=== PATIENT | female | born 2000 | race Caucasian/White ===

== ENCOUNTER 2022-08-24 16:18 | Emergency (ER) | payer OTHER ==
[~2022-08-24] VITALS: Ht 165.1 cm; Wt 68.0 kg
[2022-08-24 16:18] VITALS: BP_SYST 122
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
--- NOTE | 2022-08-24 17:00 | NUR ---
ER at bedside examining patient. Pt refusing to speak with doctor at this time.
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
--- NOTE | 2022-08-24 17:13 | NUR ---
ER Dr. Henderson at bedside examining patient.
[2022-08-24 17:22] VITALS: BP_SYST 122
--- NOTE | 2022-08-24 17:22 | NUR ---
Patient given written and verbal discharge instructions and verbalizes understanding. ER Dr. Henderson discussed with patient the results and treatment provided. Patient in stable condition. ID arm band removed. Patient educated on pain management and to follow up with PMD. Pain Scale 0/10. Opportunity for questions provided and answered. Medication side effect fact sheet provided.
== END 2022-08-24 17:22 | disposition home or self-care (01) ==
LOC: SED 16:18
DX: Z04.1 Encounter for examination and observation following transport accident (principal)
CPT/HCPCS: 99283